=== PATIENT | female | born 1990 | race Caucasian/White ===

== ENCOUNTER 2018-06-05 23:03 | Emergency (ER) | payer OTHER ==
[2018-06-06] MEDS: HYDROCODONE/APAP (5/325) TAB PO (00:24)
[2018-06-06] MEDS: LIDOCAINE 2% (MDV) 20 ML INJ INJ (00:25)
[2018-06-06] MEDS: DOXYCYCLINE 100 MG TAB PO (02:03)
== END 2018-06-06 02:56 | disposition home or self-care (01) ==
LOC: FTE 23:03
DX: L02.413 Cutaneous abscess of right upper limb (principal)
CPT/HCPCS: 81025; 99283

== ENCOUNTER 2018-07-09 01:28 | Emergency (ER) | payer SELFPAY, OTHER | END 2018-07-09 03:01 | disposition left against medical advice (07) | LOC: FTE 01:28 | DX: Z53.21 Procedure and treatment not carried out due to patient leaving prior to being seen by health care provider (principal) ==

== ENCOUNTER 2018-09-03 20:20 | Emergency (ER) | payer MEDICAID ==
[2018-09-03] MEDS: AZITHROMYCIN 250 MG TAB PO (22:12)
[2018-09-03] MEDS: CEFTRIAXONE 250 MG INJ IM (22:12)
== END 2018-09-03 22:41 | disposition home or self-care (01) ==
LOC: FTE 20:20
DX: L02.412 Cutaneous abscess of left axilla (principal); Z20.6 Contact with and (suspected) exposure to human immunodeficiency virus [HIV]
CPT/HCPCS: 87591; 96372; 99284-25